=== PATIENT | male | born 1930 | race Hispanic/Latino ===

== ENCOUNTER 2018-11-19 22:49 | Observation (INO) | payer MEDICARE ==
[~2018-11-19] VITALS: Ht 162.6 cm; Wt 76.4 kg
[2018-11-19 23:27] LABS: BASOPHILS % (AUTO) 1.2 % (0.0-5.0); EOSINOPHILS % (AUTO) 6.8 % (0.0-8.0); HEMATOCRIT 33.1 % (42-54); LYMPHOCYTES % (AUTO) 16.7 % (21.0-51.0); MEAN CORPUSCULAR HEMOGLOBIN 31.6 pg (27.0-33.0); MEAN CORPUSCULAR HGB CONC 34.3 g/dL (32.0-36.0); MEAN CORPUSCULAR VOLUME 92.1 fL (79-99); MONOCYTES % (AUTO) 7.6 % (3.0-13.0); NEUTROPHILS % (AUTO) 67.7 % (40.0-77.0); PLATELET COUNT (AUTO) 230 K/uL (130-400); RED CELL DISTRIBUTION WIDTH 13.3 % (11.0-15.5); WHITE BLOOD COUNT (AUTO) 8.1 K/uL (4.8-10.8)
[2018-11-19 23:34] LABS: CREATININE 2.5 mg/dL (0.5-1.5); POTASSIUM 3.4 mmol/L (3.5-5.1)
[2018-11-19 23:39] LABS: ALBUMIN 3.1 g/dL (3.5-5.0); BILIRUBIN,TOTAL 0.4 mg/dL (0.2-1.0); TOTAL PROTEIN, SERUM 6.2 g/dL (6.0-8.3)
[2018-11-19 23:54] LABS: INR 1.03 (0.85-1.15); PARTIAL THROMBOPLASTIN TIME 24.4 SEC (26.3-35.5); PROTHROMBIN TIME 10.8 SEC (9.6-11.6)
[2018-11-19] MEDS ORDERED: METOPROLOL TARTRATE 1 MG/ML 5ML VIAL IV ONE (23:58)
[2018-11-19] MEDS ORDERED: CEFTRIAXONE SODIUM 1 GM ONE (23:58)
[2018-11-20 00:02] LABS: B-TYPE NATRIURETIC PEPTIDE 27 pg/mL (0-100)
[2018-11-20 00:17] LABS: APPEARANCE,URINE Clear (CLEAR); BILIRUBIN,URINE Negative (NEGATIVE); COLOR,URINE Yellow (YELLOW); GLUCOSE, URINE (UA) Negative (NEGATIVE); KETONES,URINE Negative (NEGATIVE); LEUKOCYTE ESTERASE ,URINE Negative (NEGATIVE); NITRATE,URINE Negative (NEGATIVE); OCCULT BLOOD,URINE Negative (NEGATIVE); PH,URINE 5.5 (5.0-8.0); PROTEIN,URINE POS 1+ mg/dL (NEGATIVE); UROBILINOGEN,URINE 0.2 mg/dL (0.2-1.0)
[2018-11-20 00:25] LABS: BACTERIA,URINE None Seen /HPF (None Seen); RBC,URINE None Seen /HPF (0-1); SQUAMOUS EPITHELIAL CELL,UR Rare /HPF (0-2); WBC,URINE None Seen /HPF (0-1)
[2018-11-20] MEDS: SODIUM CHLORIDE 0.9% 1000ML 1,000 ML IV SCH ×3 (02:30→22:20)
[2018-11-20] MEDS ORDERED: ACETAMINOPHEN 325 MG TAB PO PRN ×2 (02:30)
[2018-11-20] MEDS ORDERED: LACTULOSE 20 GM/30 ML UDCUP PO PRN (02:30)
[2018-11-20] MEDS ORDERED: HYDRALAZINE HCL 20 MG/ML VIAL IV PRN (02:30)
[2018-11-20] MEDS ORDERED: ONDANSETRON HCL 4 MG/2 ML VIAL IV PRN (02:30)
[2018-11-20 03:00] VITALS: BP 155/71
[2018-11-20 08:00] VITALS: BP 151/74
[2018-11-20] MEDS: FAMOTIDINE 20MG TAB 20 MG TAB PO SCH ×2 (08:26→22:14)
[2018-11-20] MEDS: AMLODIPINE BESYLATE 5 MG TAB PO SCH (08:26)
[2018-11-20] MEDS: ENOXAPARIN SODIUM 40 MG/0.4 ML SYRINGE SQ SCH (08:26)
[2018-11-20] MEDS ORDERED: OFLO35OS OD (10:03)
[2018-11-20] MEDS ORDERED: PROP10TA10 PO (10:03)
[2018-11-20] MEDS ORDERED: PREDAOS OD (10:14)
[2018-11-20] MEDS ORDERED: LACT10SO32 PO (10:14)
[2018-11-20] MEDS ORDERED: ATOR40TA71 PO (10:14)
[2018-11-20] MEDS ORDERED: KETO.5OS OD (10:14)
[2018-11-20] MEDS ORDERED: DONE10TA43 PO (10:14)
[2018-11-20] MEDS ORDERED: LEVO25TA54 PO (10:14)
[2018-11-20] MEDS ORDERED: TORS10TA18 PO (10:14)
[2018-11-20] MEDS ORDERED: FAMO20TA8 PO (10:14)
[2018-11-20] MEDS ORDERED: AMLO5TAB9 PO (10:14)
[2018-11-20] MEDS ORDERED: POTASSIUM CHLORIDE 10% ELIXIR 20 MEQ/15 ML UDCUP PO PRN (10:15)
[2018-11-20] MEDS ORDERED: POTASSIUM CHLORIDE 20 MEQ ERTAB PO PRN (10:15)
[2018-11-20] MEDS ORDERED: POTASSIUM CHLORIDE 20MEQ/100ML 100 ML IV PRN (10:15)
[2018-11-20] MEDS ORDERED: LIDOCAINE HCL-MPF 1% 2ML VIAL IV PRN (10:15)
[2018-11-20 11:51] VITALS: BP 148/63
[2018-11-20] MEDS: PREDNISOLONE ACETATE 1% 5ML DROPS.SUSP OD SCH ×3 (13:00→22:18)
[2018-11-20] MEDS: KETOROLAC TROMETHAMINE OPTH 0.5% 5ML DROPS OD SCH ×3 (13:00→22:19)
--- NOTE | 2018-11-20 15:43 | NUR ---
INITIAL: Met with pt this afternoon to discuss dcp. Per pt he lives alone, he is independent w ambulation and ADLs. Pt mentions that he has a walker and cane avail if needed. Pt mentions that his provider Nighat assists w transportation when needed. Pt states that he feels safe and comfortable to return home at vt. CM to continue to follow and wait for Md recommendations. Addendum: 11/20/18 at 1546 by HOWIE CASTELLANOS Amended: Links added.
[2018-11-20 16:00] VITALS: BP 145/68
[2018-11-20 20:00] VITALS: BP 137/63
[2018-11-20] MEDS ORDERED: ATORVASTATIN CALCIUM 40 MG TABLET PO SCH (21:00)
[2018-11-20] MEDS ORDERED: OFLOXACIN 0.3% 5ML DROPS OD SCH (21:00)
[2018-11-20] MEDS ORDERED: CEFTRIAXONE SODIUM 1 GM IV SCH (22:00)
[2018-11-20] MEDS: PROPRANOLOL HCL 10 MG TAB PO SCH (22:14)
[2018-11-21 00:33] VITALS: BP 147/70
[2018-11-21 03:44] VITALS: BP 124/50
[2018-11-21 05:31] LABS: BASOPHILS % (AUTO) 1.2 % (0.0-5.0); EOSINOPHILS % (AUTO) 8.7 % (0.0-8.0); HEMATOCRIT 30.7 % (42-54); LYMPHOCYTES % (AUTO) 21.6 % (21.0-51.0); MEAN CORPUSCULAR HGB CONC 34.5 g/dL (32.0-36.0); MEAN CORPUSCULAR VOLUME 92.7 fL (79-99); MONOCYTES % (AUTO) 9.8 % (3.0-13.0); NEUTROPHILS % (AUTO) 58.7 % (40.0-77.0); PLATELET COUNT (AUTO) 207 K/uL (130-400); RED BLOOD CELL COUNT(AUTO) 3.31 MIL/uL (4.50-6.20); RED CELL DISTRIBUTION WIDTH 13.6 % (11.0-15.5); WHITE BLOOD COUNT (AUTO) 7.8 K/uL (4.8-10.8)
[2018-11-21 06:00] LABS: CREATININE 2.8 mg/dL (0.5-1.5); POTASSIUM 4.6 mmol/L (3.5-5.1)
[2018-11-21] MEDS ORDERED: LEVOTHYROXINE 25 MCG TABLET PO SCH (06:30)
[2018-11-21 08:00] VITALS: BP 159/76
[2018-11-21] MEDS: KETOROLAC TROMETHAMINE OPTH 0.5% 5ML DROPS OD SCH (09:00)
[2018-11-21] MEDS ORDERED: DONEPEZIL HCL 5 MG TAB PO SCH (09:00)
[2018-11-21] MEDS: PREDNISOLONE ACETATE 1% 5ML DROPS.SUSP OD SCH (09:00)
[2018-11-21] MEDS ORDERED: AMLODIPINE BESYLATE 5 MG TAB PO SCH (09:00)
[2018-11-21] MEDS ORDERED: TORSEMIDE 20 MG TAB PO SCH (09:00)
[2018-11-21] MEDS ORDERED: AMLO5TAB9 PO (09:51)
[2018-11-21] MEDS ORDERED: CEPH500B PO (09:56)
[2018-11-21] MEDS: PROPRANOLOL HCL 10 MG TAB PO SCH (11:27)
[2018-11-21] MEDS: AMLODIPINE BESYLATE 5 MG TAB PO SCH (11:27)
[2018-11-21] MEDS: FAMOTIDINE 20MG TAB 20 MG TAB PO SCH (11:28)
[2018-11-21] MEDS: ENOXAPARIN SODIUM 40 MG/0.4 ML SYRINGE SQ SCH (11:29)
[2018-11-21 12:00] VITALS: BP 140/60
== END 2018-11-21 13:50 | disposition home or self-care (01) ==
LOC: EDH 22:49 → EDHIP 11-20 02:27 → 3DH 11-20 03:21
PROVIDERS: ADMIT Hospitalist; ATTEND Hospitalist
DX: I12.9 Hypertensive chronic kidney disease with stage 1 through stage 4 chronic kidney disease, or unspecified chronic kidney disease (principal); N18.9 Chronic kidney disease, unspecified; E78.5 Hyperlipidemia, unspecified; H70.11 Chronic mastoiditis, right ear; I73.9 Peripheral vascular disease, unspecified; F17.200 Nicotine dependence, unspecified, uncomplicated; J32.3 Chronic sphenoidal sinusitis; Z79.899 Other long term (current) drug therapy
CPT/HCPCS: 36415 ×2; 70450; 71045; 80048; 80053; 81001; 82550; 83880; 84484; 85025 ×2; 85610; 85730; 93005; 96372 ×2; 96374; 99284; A4600; G0378 ×35; J0696 ×2; J1650 ×2; J3490; J7030; J7510

== ENCOUNTER 2019-01-28 01:17 | Emergency (ER) | payer MEDICARE ==
[~2019-01-28 01:17] MED LIST: AMLO5TAB9 PO; ATOR40TA71 PO; CEPH500B PO; DONE10TA43 PO; FAMO20TA8 PO; KETO.5OS OD; LACT10SO32 PO; LEVO25TA54 PO; OFLO35OS OD; PREDAOS OD; PROP10TA10 PO; TORS10TA18 PO
[2019-01-28 01:56] LABS: BASOPHILS % (AUTO) 1.4 % (0.0-5.0); EOSINOPHILS % (AUTO) 11.1 % (0.0-8.0); HEMATOCRIT 33.8 % (42-54); LYMPHOCYTES % (AUTO) 19.2 % (21.0-51.0); MEAN CORPUSCULAR HEMOGLOBIN 30.8 pg (27.0-33.0); MEAN CORPUSCULAR HGB CONC 33.7 g/dL (32.0-36.0); MEAN CORPUSCULAR VOLUME 91.4 fL (79-99); MONOCYTES % (AUTO) 10.2 % (3.0-13.0); NEUTROPHILS % (AUTO) 57.8 % (40.0-77.0); PLATELET COUNT (AUTO) 196 K/uL (130-400); RED CELL DISTRIBUTION WIDTH 12.7 % (11.0-15.5); WHITE BLOOD COUNT (AUTO) 7.3 K/uL (4.8-10.8)
[2019-01-28 02:04] LABS: CREATININE 3.4 mg/dL (0.5-1.5); POTASSIUM 4.1 mmol/L (3.5-5.1)
[2019-01-28 02:09] LABS: ALBUMIN 3.9 g/dL (3.5-5.0); BILIRUBIN,TOTAL 0.4 mg/dL (0.2-1.0); INR 0.98 (0.85-1.15); PARTIAL THROMBOPLASTIN TIME 27.9 SEC (26.3-35.5); PROTHROMBIN TIME 10.3 SEC (9.6-11.6); TOTAL PROTEIN, SERUM 7.4 g/dL (6.0-8.3)
[2019-01-28 02:59] LABS: B-TYPE NATRIURETIC PEPTIDE 29 pg/mL (0-100)
[2019-01-28] MEDS ORDERED: DiphenhydrAMINE HCL 50 MG/ML VIAL ONE (03:11)
[2019-01-28] MEDS ORDERED: IBUPROFEN 200 MG TAB ONE (03:12)
[2019-01-28] MEDS ORDERED: CEFTRIAXONE SODIUM 1 GM ONE (03:12)
== END 2019-01-28 03:47 | disposition home or self-care (01) ==
LOC: EDH 01:17
DX: J32.2 Chronic ethmoidal sinusitis (principal); N28.9 Disorder of kidney and ureter, unspecified; I10 Essential (primary) hypertension; E78.00 Pure hypercholesterolemia, unspecified; F41.9 Anxiety disorder, unspecified
CPT/HCPCS: 36415; 70450; 71045; 80053; 82550; 83880; 84484; 85025; 85610; 85730; 87804 ×2; 93005; 96374; 96375; 99285; J0696; J1200